=== PATIENT | female | born 1955 | race Caucasian/White ===

== ENCOUNTER 2018-12-15 23:24 | Emergency (ER) | payer BC ==
[~2018-12-15] VITALS: Ht 167.6 cm; Wt 108.2 kg
[2018-12-15 23:30] VITALS: Ht 167.6 cm; Wt 108.2 kg
[2018-12-15] MEDS ORDERED: BISACODYL (EC) 5 MG TAB PO PRN (23:30)
[2018-12-15] MEDS ORDERED: ACETAMINOPHEN 325 MG TAB PO PRN (23:30)
[2018-12-15] MEDS ORDERED: ONDANSETRON 4 MG INJ IV PRN (23:30)
[2018-12-15] MEDS ORDERED: NACL 0.9% 3 ML SYG IV SCH (23:30)
[2018-12-15] MEDS ORDERED: morphine 2 MG INJ IV PRN (23:30)
[2018-12-15] MEDS ORDERED: NITROGLYCERIN (SL) 0.4 MG TAB SL PRN (23:30)
[2018-12-15] MEDS ORDERED: DOCUSATE SODIUM 100 MG CAP PO PRN (23:30)
--- NOTE | 2018-12-16 01:08 | ERD ---
ER Documentation Chief Complaint Chief Complaint CP TODAY HPI Is a 61-year-old female has had chest pain today. Patient is capitated from another hospital. Transferred here for insurance reasons. ROS All systems reviewed and are negative except as per history of present illness. Medications Home Meds Reported Medications Triamterene/Hctz* (Maxzide (37.5-25)*) 1 Each Tablet, 1 EACH PO DAILY, #30 TAB 12/16/18 Aspirin Ec (Aspir 81) 81 Mg Tablet.dr, 81 MG PO DAILY, #30 TAB 12/16/18 Allergies Allergies: Coded Allergies: cephalexin (Verified Allergy, Unknown, 12/16/18) sulfamethoxazole (Verified Allergy, Unknown, 12/16/18) trimethoprim (Verified Allergy, Unknown, 12/16/18) PMhx/Soc History of Surgery: Yes ( X 1) Anesthesia Reaction: No Hx Neurological Disorder: No Hx Respiratory Disorders: No Hx Cardiac Disorders: Yes (HTN) Hx Psychiatric Problems: No Hx Miscellaneous Medical Probl: No Hx Alcohol Use: No Hx Substance Use: No Hx Tobacco Use: No Smoking Status: Never smoker Physical Exam Vitals Vital Signs Date Temp Pulse Resp B/P (MAP) Pulse Ox O2 O2 Flow FiO2 Time Delivery Rate 12/16/18 96.9 77 18 144/77 100 Room Air 12:29 (99) 12/16/18 71 20 114/71 97 Room Air 08:47 (85) 12/16/18 97.8 61 18 116/72 97 Room Air 05:50 (87) 12/16/18 58 18 115/68 96 Room Air 01:30 (84) 12/15/18 77 20 150/72 99 Room Air 23:30 (98) 12/15/18 98.4 78 16 151/70 98 23:30 (97) Physical Exam Const: No acute distress Head: Atraumatic Eyes: Normal Conjunctiva ENT: Normal External Ears, Nose and Mouth. Neck: Full range of motion. No meningismus. Resp: Clear to auscultation bilaterally Cardio: Regular rate and rhythm, no murmurs Abd: Soft, non tender, non distended. Normal bowel sounds Skin: No petechiae or rashes Back: No midline or flank tenderness Ext: No cyanosis, or edema Neur: Awake and alert Psych: Normal Mood and Affect Result Diagram: 12/16/18 0612 12/16/18 0612 Results 24 hrs Laboratory Tests Test 12/15/18 23:45 12/16/18 06:12 12/16/18 13:22 Creatine Kinase 72 IU/L 64 IU/L Creatine Kinase Index 1.1 1.0 Creatinine Kinase MB (Mass) 0.76 ng/ml 0.62 ng/ml Troponin I < 0.012 ng/ml < 0.012 ng/ml < 0.012 ng/ml White Blood Count 5.8 10^3/ul Red Blood Count 4.81 10^6/ul Hemoglobin 13.2 g/dl Hematocrit 41.1 % Mean Corpuscular Volume 85.4 fl Mean Corpuscular Hemoglobin 27.4 pg Mean Corpuscular 32.1 g/dl Hemoglobin Concent Red Cell Distribution Width 13.5 % Platelet Count 238 10^3/UL Mean Platelet Volume 10.5 fl Immature Granulocytes % 0.300 % Neutrophils % 65.5 % Lymphocytes % 23.3 % Monocytes % 6.4 % Eosinophils % 3.8 % Basophils % 0.7 % Nucleated Red Blood Cells % 0.0 /100WBC Immature Granulocytes # 0.020 10^3/ul Neutrophils # 3.8 10^3/ul Lymphocytes # 1.3 10^3/ul Monocytes # 0.4 10^3/ul Eosinophils # 0.2 10^3/ul Basophils # 0.0 10^3/ul Nucleated Red Blood Cells # 0.0 10^3/ul Sodium Level 144 mmol/L Potassium Level 3.9 mmol/L Chloride Level 105 mmol/L Carbon Dioxide Level 31 mmol/L Anion Gap 8 Blood Urea Nitrogen 17 mg/dl Creatinine 0.73 mg/dl Est Glomerular Filtrat > 60 mL/min Rate mL/min Glucose Level 133 mg/dl Hemoglobin A1c 5.3 % Calcium Level 10.0 mg/dl Magnesium Level 2.1 mg/dl Total Bilirubin 0.5 mg/dl Direct Bilirubin 0.00 mg/dl Indirect Bilirubin 0.5 mg/dl Aspartate Amino 23 IU/L Transf (AST/SGOT) Alanine 18 IU/L Aminotransferase (ALT/SGPT) Alkaline Phosphatase 83 IU/L Total Protein 7.7 g/dl Albumin 4.3 g/dl Globulin 3.40 g/dl Albumin/Globulin Ratio 1.26 Triglycerides Level 168 mg/dl Cholesterol Level 196 mg/dl LDL Cholesterol, Calculated 112 mg/dl HDL Cholesterol 50 mg/dl Cholesterol/HDL Ratio 3.9 RATIO Thyroid Stimulating 4.620 MIU/L Hormone (TSH) Current Medications Medications Dose Sig/Jamia Start Time Status Last (Trade) Ordered Route PRN Stop Time Admin Dose Reason Admin IV Flush 3 ml PER 12/15/18 (NS 3 ml) PROTOCOL IV 23:30 Ondansetron 4 mg Q6H PRN 12/15/18 HCl (Zofran IV 23:30 Inj) NAUSEA/VOMITI NG 1 tab Q5M PRN 12/15/18 Nitroglycerin SL .CHEST 23:30 PAIN (Nitroglyceri n (Sl Tab) 0.4 Mg) 650 mg Q6H PRN 12/15/18 12/15/18 Acetaminophen PO .PAIN 1-3 23:30 23:58 (Tylenol OR TEMP Tab) Morphine 2 mg Q4H PRN 12/15/18 Sulfate IV .PAIN 23:30 (morphine) 7-10 Docusate 100 mg Q12H PRN 12/15/18 Sodium PO 23:30 (Colace) .CONSTIPATION Bisacodyl 5 mg DAILY PRN 12/15/18 (Dulcolax) PO 23:30 .CONSTIPATION Procedures/MDM Patient's symptoms are concerning for cardiac cause will require inpatient workup and continuous monitoring. Further w/u for ischemia, arrhythmia, PE or dissection will be deferred to the inpatient team. Accepting Care Team: Current data and ongoing care discussed. Time: Time of admission Primary Provider: Dr. Bravo Consulting: [XOXOX[employer]] Outstanding Data: none 1445: pt boarding in the ER awaiting a bed. seen by Dr. Barry. discharge instructions per Dr. Barry Departure Diagnosis: Primary Impression: Chest pain Chest pain type: unspecified Qualified Codes: R07.9 - Chest pain, unspecified Condition: NARAYAN Meraz December 16, 2018 01:08 RAFITA PEREZ December 16, 2018 14:50
[2018-12-16] MEDS ORDERED: ASPI-535 PO (02:55)
--- NOTE | 2018-12-16 03:12 | HP ---
Date/Time of Note Date/Time of Note DATE: 12/16/18 TIME: 03:12 Assessment/Plan VTE Prophylaxis SCD applied (from Nsg): Yes Pharmacological prophylaxis: NA/contraindicated Pharm contraindication: low risk/ambulating Lines/Catheters IV Catheter Type (from Nrsg): Saline Lock Assessment/Plan Hospital Course This is a 63-year-old female being admitted to the telemetry floor for observation for: #1 atypical chest pain: Rule out ACS versus anxiety versus musculoskeletal: Initial cardiac enzymes are negative, will trend cardiac enzymes. We will check an echocardiogram. Check hemoglobin A 1C, lipid panel, TSH. EKG from the transfer facility appears to be nonischemic. #2 hypertension: We will need to confirm patient's home medications, PRN hydralazine #3 obesity: We will check a hemoglobin A1c, lipid panel, TSH encouraged lifestyle and dietary modification #4 DVT GI prophylaxis: SCDs, no GI prophylaxis indicated Further treatment strategy will be implemented as per the clinical course Results 24hrs Laboratory Tests Test 12/15/18 23:45 Creatine Kinase 72 Creatine Kinase Index 1.1 Creatinine Kinase MB (Mass) 0.76 Troponin I < 0.012 HPI/ROS Admit Date/Time Admit Date/Time Hx of Present Illness Chief complaint: Chest pain This is a 63-year-old with a past medical history of hypertension who presented originally to [facility] ER with complaints of chest pain. Patient reports that her chest pain has been on and off for the last few days on the left side. She states that it is dull in nature. She states that it occurs at rest and during activity but denies any associated shortness of breath diaphoresis or radiation of the pain. She does report that she has a daughter who deals with his anxiety and her daughter's anxiety causes her to also be worried. Since being transferred to [facility] ER she denies any chest pain. She did report also having back pain which resolved with Tylenol. EKG: Normal sinus rhythm at approximately [address] or T wave amounts concerning for acute ischemia. Pertinent laboratory findings from transfer facility, please see chart for full details: CBC within normal values Initial troponin less than 0.01 Potassium 3.6 creatinine 0.67 BNP 149 D-dimer less than 0.43 Chest x-ray: No acute cardiopulmonary process Allergies: Cephalexin, Bactrim Medications: Aspirin 81 mg Unknown blood pressure meds ROS Const: As per HPI Eyes : No pain discharge or redness or change in visual acuity ENT: No pain, sore throat, congestion, congestion, dysphagia or discharge Respiratory: No shortness of breath, cough, sputum, wheezing, or pleuritic pain Cardiovascular: As per HPI GI : no change in appetite, abdominal pain, nausea, vomiting, diarrhea, constipation, or change in the color his stool Genitourinary: No dysuria, hematuria, flank pain , discharge or CVA tenderness Musculoskeletal: No joint pain, back pain, neck pain, restricted range of motion in neck or joints Skin: No rash, bruising or hives Neuro: No headache, dizziness, syncope, seizure, focal weakness Endocrine: No polyuria, polydipsia, temperature intolerance Psych: As per HPI PMH/Family/Social Past Medical History Hypertension Medications Current Medications IV Flush (NS 3 ml) 3 ml PER PROTOCOL IV ; Start 12/15/18 at 23:30 Ondansetron HCl (Zofran Inj) 4 mg Q6H PRN IV NAUSEA/VOMITING; Start 12/15/18 at 23:30 Nitroglycerin (Nitroglycerin (Sl Tab) 0.4 Mg) 1 tab Q5M PRN SL .CHEST PAIN; Start 12/15/18 at 23:30 Acetaminophen (Tylenol Tab) 650 mg Q6H PRN PO .PAIN 1-3 OR TEMP Last administered on 12/15/18at 23:58; Admin Dose 650 MG; Start 12/15/18 at 23:30 Morphine Sulfate (morphine) 2 mg Q4H PRN IV .PAIN 7-10; Start 12/15/18 at 23:30 Docusate Sodium (Colace) 100 mg Q12H PRN PO .CONSTIPATION; Start 12/15/18 at 23:30 Bisacodyl (Dulcolax) 5 mg DAILY PRN PO .CONSTIPATION; Start 12/15/18 at 23:30 Coded Allergies: cephalexin (Verified Allergy, Unknown, 12/16/18) sulfamethoxazole (Verified Allergy, Unknown, 12/16/18) trimethoprim (Verified Allergy, Unknown, 12/16/18) Past Surgical History Tubal ligation Family History Significant Family History: no pertinent family hx Social History Alcohol Use: none Smoking Status: Never smoker Drug Use: none Exam/Review of Systems Vital Signs Vitals Vital Signs Date Temp Pulse Resp B/P (MAP) Pulse Ox O2 O2 Flow FiO2 Time Delivery Rate 12/16/18 58 18 115/68 96 Room Air 01:30 (84) 12/15/18 98.4 23:30 Exam Exam General: Patient is a pleasant female currently lying in bed in no acute distress HEENT: Atraumatic, normocephalic. The pupils are equal, round and reactive. Extraocular motor are intact Neck: Supple with full range of motion. No rigidity or meningismus Chest: Mild tenderness to palpation over the left chest wall Lungs: Clear to auscultation bilaterally no crackles rales or wheezing Heart: Normal S1-S2, Regular rhythm and rate. No murmur, S3, or S4 Abdomen: Obesity, soft , nontender, nondistended , bowel sounds are present. No guarding no rebound tenderness , No masses or organomegaly. No costovertebral temporal angle mass Extremities: Normal to inspection, no edema no cyanosis Neurologic: Normal mental status, speech normal, cranial nerves II through XII are intact, motor and sensory are intact, FELICIA NAIK December 16, 2018 03:12
[2018-12-16] MEDS ORDERED: MAXZ25 PO (11:26)
--- NOTE | 2018-12-16 14:16 | PN ---
Date/Time of Note Date/Time of Note DATE: 12/16/18 TIME: 14:09 Assessment/Plan VTE Prophylaxis SCD applied (from Nsg): Yes Pharmacological prophylaxis: other Pharm contraindication: low risk/ambulating Lines/Catheters IV Catheter Type (from Nrsg): Saline Lock Assessment/Plan Assessment/Plan 1. Chest pain, likely musculoskeletal, negative troponinx3/ECG unremarkable, cardiology consultation, patient was sent from [facility] for stress test 2. HTN, antihypertensive 3. Obesity: We will check a hemoglobin A1c, lipid panel, TSH encouraged lifestyle and dietary modification 4. DVT GI prophylaxis: SCDs, no GI prophylaxis indicated Result Diagram: 12/16/1861112/16/18611 Results 24hrs Laboratory Tests Test 12/15/18 23:45 12/16/18 06:12 12/16/18 13:22 Creatine Kinase 72 64 Creatine Kinase Index 1.1 1.0 Creatinine Kinase MB (Mass) 0.76 0.62 Troponin I < 0.012 < 0.012 < 0.012 White Blood Count 5.8 Red Blood Count 4.81 Hemoglobin 13.2 Hematocrit 41.1 Mean Corpuscular Volume 85.4 Mean Corpuscular Hemoglobin 27.4 L Mean Corpuscular Hemoglobin Concent 32.1 Red Cell Distribution Width 13.5 Platelet Count 238 Mean Platelet Volume 10.5 H Immature Granulocytes % 0.300 Neutrophils % 65.5 Lymphocytes % 23.3 Monocytes % 6.4 Eosinophils % 3.8 Basophils % 0.7 Nucleated Red Blood Cells % 0.0 Immature Granulocytes # 0.020 Neutrophils # 3.8 Lymphocytes # 1.3 Monocytes # 0.4 Eosinophils # 0.2 Basophils # 0.0 Nucleated Red Blood Cells # 0.0 Sodium Level 144 Potassium Level 3.9 Chloride Level 105 Carbon Dioxide Level 31 Anion Gap 8 Blood Urea Nitrogen 17 Creatinine 0.73 Est Glomerular Filtrat Rate mL/min > 60 Glucose Level 133 Hemoglobin A1c 5.3 Calcium Level 10.0 Magnesium Level 2.1 Total Bilirubin 0.5 Direct Bilirubin 0.00 Indirect Bilirubin 0.5 Aspartate Amino Transf (AST/SGOT) 23 Alanine Aminotransferase (ALT/SGPT) 18 Alkaline Phosphatase 83 Total Protein 7.7 Albumin 4.3 Globulin 3.40 H Albumin/Globulin Ratio 1.26 Triglycerides Level 168 H Cholesterol Level 196 LDL Cholesterol, Calculated 112 HDL Cholesterol 50 Cholesterol/HDL Ratio 3.9 Thyroid Stimulating Hormone (TSH) 4.620 Subjective 24 Hr Interval Summary Free 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, 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 Exam/Review of Systems Exam Vitals Vital Signs Date Temp Pulse Resp B/P (MAP) Pulse Ox O2 O2 Flow FiO2 Time Delivery Rate 12/16/18 96.9 77 18 144/77 100 Room Air 12:29 (99) Constitutional: alert, oriented, well developed Psych: no complaints, nl mood/affect, anxiety Head: normocephalic, atraumatic Eyes: nl conjunctiva, EOMI, nl lids ENMT: nl external ears & nose, nl lips & teeth, nl nasal mucosa & septum Neck: supple, non-tender Respiratory: clear to auscultation, normal air movement; No congested cough, No crackles/rales, No diminished breath sounds, No intercostal retraction, No labored breathing, No respirations, No tactile fremitus, No wheezing, No other Cardiovascular: regular rate and rhythm, nl pulses; No bruits, No diastolic murmur, No edema, No gallop, No irregular rhythm, No jugular venous distention (JVD), No murmurs/extra sounds, No rub, No systolic murmur, No S3, No S4, No other Gastrointestinal: soft, nl liver, spleen, non-tender Musculoskeletal: nl extremities to inspection Extremities: normal pulses; No calf tenderness, No cyanosis, No clubbing, No edema, No pitting pedal edema, No palpable cord, No tenderness, No other Neurological: MANAGER II-XII intact, nl speech, nl strength Results Results 24hrs Laboratory Tests Test 12/15/18 23:45 12/16/18 06:12 12/16/18 13:22 Creatine Kinase 72 64 Creatine Kinase Index 1.1 1.0 Creatinine Kinase MB (Mass) 0.76 0.62 Troponin I < 0.012 < 0.012 < 0.012 White Blood Count 5.8 Red Blood Count 4.81 Hemoglobin 13.2 Hematocrit 41.1 Mean Corpuscular Volume 85.4 Mean Corpuscular Hemoglobin 27.4 L Mean Corpuscular Hemoglobin Concent 32.1 Red Cell Distribution Width 13.5 Platelet Count 238 Mean Platelet Volume 10.5 H Immature Granulocytes % 0.300 Neutrophils % 65.5 Lymphocytes % 23.3 Monocytes % 6.4 Eosinophils % 3.8 Basophils % 0.7 Nucleated Red Blood Cells % 0.0 Immature Granulocytes # 0.020 Neutrophils # 3.8 Lymphocytes # 1.3 Monocytes # 0.4 Eosinophils # 0.2 Basophils # 0.0 Nucleated Red Blood Cells # 0.0 Sodium Level 144 Potassium Level 3.9 Chloride Level 105 Carbon Dioxide Level 31 Anion Gap 8 Blood Urea Nitrogen 17 Creatinine 0.73 Est Glomerular Filtrat Rate mL/min > 60 Glucose Level 133 Hemoglobin A1c 5.3 Calcium Level 10.0 Magnesium Level 2.1 Total Bilirubin 0.5 Direct Bilirubin 0.00 Indirect Bilirubin 0.5 Aspartate Amino Transf (AST/SGOT) 23 Alanine Aminotransferase (ALT/SGPT) 18 Alkaline Phosphatase 83 Total Protein 7.7 Albumin 4.3 Globulin 3.40 H Albumin/Globulin Ratio 1.26 Triglycerides Level 168 H Cholesterol Level 196 LDL Cholesterol, Calculated 112 HDL Cholesterol 50 Cholesterol/HDL Ratio 3.9 Thyroid Stimulating Hormone (TSH) 4.620 Medications Medication Current Medications IV Flush (NS 3 ml) 3 ml PER PROTOCOL IV ; Start 12/15/18 at 23:30 Ondansetron HCl (Zofran Inj) 4 mg Q6H PRN IV NAUSEA/VOMITING; Start 12/15/18 at 23:30 Nitroglycerin (Nitroglycerin (Sl Tab) 0.4 Mg) 1 tab Q5M PRN SL .CHEST PAIN; Start 12/15/18 at 23:30 Acetaminophen (Tylenol Tab) 650 mg Q6H PRN PO .PAIN 1-3 OR TEMP Last administered on 12/15/18at 23:58; Start 12/15/18 at 23:30 Morphine Sulfate (morphine) 2 mg Q4H PRN IV .PAIN 7-10; Start 12/15/18 at 23:30 Docusate Sodium (Colace) 100 mg Q12H PRN PO .CONSTIPATION; Start 12/15/18 at 23:30 Bisacodyl (Dulcolax) 5 mg DAILY PRN PO .CONSTIPATION; Start 12/15/18 at 23:30 GUICHO NICK MD December 16, 2018 14:16
--- NOTE | 2018-12-16 14:34 | DS ---
Date/Time of Note Date/Time of Note DATE: 12/16/18 TIME: 14:31 Discharge Summary Admission/Discharge Info Admit Date/Time Discharge Date/Time Discharge Diagnosis 1. Chest pain, likely musculoskeletal, resolved, negative troponinx3/ECG, follow up with PCP 2. HTN, controlled 3. Obesity: weight loss Patient Condition: Stable Hospital Course This is a 63-year-old with a past medical history of hypertension who presented originally to [facility] ER with complaints of chest pain. Patient reports that her chest pain has been on and off for the last few days on the left side. She states that it is dull in nature. She states that it occurs at rest and during activity but denies any associated shortness of breath diaphoresis or radiation of the pain. She does report that she has a daughter who deals with his anxiety and her daughter's anxiety causes her to also be worried. Since being transferred to [facility] ER she denies any chest pain. She did report also having back pain which resolved with Tylenol. ECG unremarkable. Tropon in negative x 3. Chest pain is considered musculoskeletal. Pateint is instructed to follow up with PCP to get elective tress test as outpatient. Home Meds Reported Medications Triamterene/Hctz* (Maxzide (37.5-25)*) 1 Each Tablet, 1 EACH PO DAILY, #30 TAB 12/16/18 Aspirin Ec (Aspir 81) 81 Mg Tablet.dr, 81 MG PO DAILY, #30 TAB 12/16/18 Follow-up Plan PCP in one week Primary Care Provider Not On Staff Doctor Pending Labs Laboratory Tests Test 12/15/18 23:45 12/16/18 06:12 12/16/18 13:22 Creatine Kinase 72 IU/L (23-200) 64 IU/L (23-200) Creatine Kinase 1.1 1.0 Index Creatinine Kinase 0.76 0.62 MB (Mass) ng/ml (0.0-2.4) ng/ml (0.0-2.4) Troponin I < 0.012 < 0.012 < 0.012 ng/ml (0.000-0.120) ng/ml (0.000-0.120 ng/ml (0.000-0.120 ) ) White Blood Count 5.8 10^3/ul (4.8-10.8) Red Blood Count 4.81 10^6/ul (4.20-5.40 ) Hemoglobin 13.2 g/dl (12.0-16.0) Hematocrit 41.1 % (37.0-47.0) Mean Corpuscular 85.4 Volume fl (82.0-101.0) Mean Corpuscular 27.4 Hemoglobin pg (29.0-33.0) Mean Corpuscular 32.1 Hemoglobin Concent g/dl (32.0-37.0) Red Cell 13.5 % (11.5-14.5) Distribution Width Platelet Count 238 10^3/UL (140-415) Mean Platelet 10.5 fl (7.4-10.4) Volume Immature 0.300 Granulocytes % % (0.001-0.429) Neutrophils % 65.5 % (39.0-77.0) Lymphocytes % 23.3 % (15.0-51.0) Monocytes % 6.4 % (0.0-11.0) Eosinophils % 3.8 % (0.0-7.0) Basophils % 0.7 % (0.0-2.0) Nucleated Red Blood 0.0 Cells % /100WBC (0.0-0.0) Immature 0.020 Granulocytes # 10^3/ul (0.0-0.031 ) Neutrophils # 3.8 10^3/ul (1.6-7.5) Lymphocytes # 1.3 10^3/ul (0.8-2.9) Monocytes # 0.4 10^3/ul (0.3-0.9) Eosinophils # 0.2 10^3/ul (0.0-0.5) Basophils # 0.0 10^3/ul (0.0-0.1) Nucleated Red Blood 0.0 Cells # 10^3/ul (0.0-0.0) Sodium Level 144 mmol/L (135-144) Potassium Level 3.9 mmol/L (3.5-5.1) Chloride Level 105 mmol/L (97-110) Carbon Dioxide 31 mmol/L (21-31) Level Anion Gap 8 (5-13) Blood Urea 17 mg/dl (7-20) Nitrogen Creatinine 0.73 mg/dl (0.44-1.00) Est Glomerular > 60 mL/min (>60) Filtrat Rate mL/min Glucose Level 133 mg/dl (70-220) Hemoglobin A1c 5.3 % (0-5.9) Calcium Level 10.0 mg/dl (8.4-10.2) Magnesium Level 2.1 mg/dl (1.7-2.5) Total Bilirubin 0.5 mg/dl (0.2-1.3) Direct Bilirubin 0.00 mg/dl (0.00-0.20) Indirect Bilirubin 0.5 mg/dl (0-1.1) Aspartate Amino 23 IU/L (15-46) Transf (AST/SGOT) Alanine 18 IU/L (13-69) Aminotransferase (A LT/SGPT) Alkaline 83 IU/L (42-121) Phosphatase Total Protein 7.7 g/dl (6.1-8.1) Albumin 4.3 g/dl (3.3-4.9) Globulin 3.40 g/dl (1.3-3.2) Albumin/Globulin 1.26 Ratio Triglycerides 168 mg/dl (0-149) Level Cholesterol Level 196 mg/dl (100-200) LDL Cholesterol, 112 mg/dl Calculated HDL Cholesterol 50 mg/dl (35-98) Cholesterol/HDL 3.9 RATIO Ratio Thyroid Stimulating 4.620 Hormone (TSH) MIU/L (0.465-4.680 ) GUICHO NICK MD December 16, 2018 14:34
--- NOTE | 2018-12-16 14:51 | RADRPT ---
Echocardiogram Report Patient Name: Lauren MASSEY ID: [id number] : 1955 (63y 2m)Study Date: 12/16/2018 11:25:50 AM Gender: FAccession #: [id number] Tech: Niall Spicer [facility] Location: [facility] Ref.Physician: FELICIA NAIK Height(Cm): BSA: Weight(Kg): Quality: AdequateOrder Physician: FELICIA NAIK Account #: Procedures: Echocardiographic Report: Transthoracic echocardiogram with complete 2D, M-Mode, and doppler examination. Indications: Chest Pain. Measurements: 2D/M Mode Doppler Measurement Value Normal Range Measurement Value Normal Range LVIDd 2D 5.7 [ 3.8 - 5.2 ] cm AV Peak Sylvester 1.9 [ 100.0 - 170.0 ] cm/sec LVIDs 2D 4.3 [ 2.2 - 3.5 ] cm AV Peak PG 14.0 [ 2.0 - 9.0 ] mmHg LVPWd 2D 1.0 [ 0.6 - 0.9 ] cm LVOT Peak Sylvester 0.9 [ 70.0 - 110.0 ] cm/sec IVSd 2D 1.0 [ 0.6 - 0.9 ] cm LVOT Peak PG 3.0 [ 2.0 - 6.0 ] mmHg AoR Diam 2D 2.5 [ 2.3 - 3.1 ] cm MV E Peak Sylvester 0.9 [ 60.0 - 130.0 ] cm/sec EDV 2D 161.0 [ 46.0 - 106.0 ] ml MV A Peak Sylvester 1.0 [ 100.0 - 120.0 ] cm/sec ESV 2D 84.9 [ 14.0 - 42.0 ] ml MV E/A 0.8 [ 0.8 - 1.5 ] ratio EF 2D 47.3 [ 54.0 - 74.0 ] percent MV Decel Time 268 [ 104 - 258 ] msec LA Dimen 2D 3.6 [ 2.7 - 3.8 ] cm Lat E` Sylvester 0.1 [ 10.0 - 15.0 ] cm/sec Lateral E/E` 8.8 [ 1.0 - 2.0 ] ratio MV E/A 0.8 [ 0.8 - 1.5 ] ratio TR Peak Sylvester 2.0 [ 100.0 - 280.0 ] cm/sec TR Peak PG 16.0 mmHg RVSP 19.0 [ 10.0 - 36.0 ] mmHg Findings: Left Ventricle: Normal left ventricular systolic function. Normal left ventricular wall thickness. Mild enlargement of left ventricle cavity. Ejection fraction is visually estimated at 55 %. Tissue Doppler/Mitral Doppler indices are consistent with impaired relaxation (Stage I diastolic dysfunction). Right Ventricle: Normal right ventricular size. Normal right ventricular systolic function. Left Atrium: There is moderate enlargement of left atrium. Right Atrium: There is mild enlargement of right atrium. Mitral Valve: Normal appearance of the mitral valve. Trace mitral regurgitation. Aortic Valve: Normal appearance of the aortic valve. No significant aortic stenosis or insufficiency. Tricuspid Valve: Normal appearance of the tricuspid valve. Estimated peak PA systolic pressure 19 mmHg. There is trace tricuspid regurgitation. Pericardium: Normal pericardium with no significant pericardial effusion. Aorta: Normal aortic root. IVC: Normal size and normal respiratory collapse consistent with normal right atrial pressure. Conclusions: Normal left ventricular systolic function. Normal left ventricular wall thickness. Mild enlargement of left ventricle cavity. Ejection fraction is visually estimated at 55 %. Tissue Doppler/Mitral Doppler indices are consistent with impaired relaxation (Stage I diastolic dysfunction). No significant valvular stenosis or regurgitation seen. Estimated peak PA systolic pressure 19 mmHg. Normal size and normal respiratory collapse consistent with normal right atrial pressure. Electronically Signed By: Pablito Campbell 2018-12-16 14:50:31 PDT
[2018-12-16 15:05] VITALS: BP 139/76; PULSE 78; RESP 18
== END 2018-12-16 15:26 | disposition home or self-care (01) ==
LOC: E/R 23:24 → CANBEDREQ 12-16 14:54 → E/R 12-16 15:26
DX: R07.9 Chest pain, unspecified (principal)
CPT/HCPCS: 80053; 80061; 82550; 82553; 83036; 83735; 84443; 84484; 85025; 93306; Z7502; Z7610